=== PATIENT | male | born 1965 | race American Indian/Alaskan Native ===

== ENCOUNTER 2016-08-18 14:01 | Emergency (ER) | payer BC, OTHER ==
[2016-08-18 14:14] VITALS: BMI 29.6
--- NOTE | 2016-08-18 14:53 | ED PDOC ---
Arrival/HPI - General Chief Complaint: Back Pain Time Seen by Provider: 08/18/16 14:37 - History of Present Illness Narrative History of Present Illness (Text): 08/18/16 14:53 Patient presents with lower lumbar back pain after bending/forward flexion 4 days ago. Pt states pain feels like a muscle spasm, worst with movement and palpation. States pain shoots across his lower back. No ripping/tearing sensation, pt is not diffuse and not traveling or changing location. Relieved with positioning. No lower extremity pain/weakness/paresthesias. Pt denies urinary incontinence or retention. No bowel incontinence, constipation, or diarrhea. No hx of IVDA, no f/c, no neck pain. No other complaints. Past Medical History - Provider Review Nursing Documentation Reviewed: Yes - Past History Past History: No Previous - Infectious Disease Hx of Infectious Diseases: None - Tetanus Immunization Tetanus Immunization: Unknown - Past Medical History Past Medical History: No Previous - Cardiac Hx Hypertension: Yes Hx Pacemaker: Yes - Pulmonary Hx Respiratory Disorders: No - Neurological Hx Neurological Disorder: Yes - HEENT Hx HEENT Disorder: Yes - Renal Hx Renal Disorder: No - Endocrine/Metabolic Hx Endocrine Disorders: No - Hematological/Oncological Hx Blood Transfusions: No - Integumentary Hx Dermatological Disorder: No Hx Basal Cell Carcinoma: No Hx Eczema: No Hx Melanoma: No Hx Psoriasis: No Hx Squamous Cell Carcinoma: No - Musculoskeletal/Rheumatological Hx Musculoskeletal Disorders: No - Gastrointestinal Hx Gastroesophageal Reflux: No - Genitourinary/Gynecological Hx Genitourinary Disorders: No - Psychiatric Hx Physical Abuse: No Hx Substance Use: No - Past Surgical History Past Surgical History: No Previous - Surgical History Hx Amputation: No Hx Appendectomy: No Hx Cardiac Catheterization: Yes Hx Cholecystectomy: No Hx Coronary Stent: No Hx Gastric Bypass Surgery: No Hx Hysterectomy: No Hx Joint Replacement: No Hx Kidney Transplant: No Hx Liver Transplant: No Hx Mastectomy: No Hx Musculoskeletal Surgery: No Hx Open Heart Surgery: No Hx Orthopedic Surgery: No Hx Splenectomy: No Hx Valve Replacement: No - Anesthesia Hx Anesthesia Reactions: No Hx Malignant Hyperthermia: No - Suicidal Assessment Feels Threatened In Home Enviroment: No Family/Social History - Physician Review Nursing Documentation Reviewed: Yes Family/Social History: Unknown Family HX Smoking Status: Never Smoked Hx Alcohol Use: No Hx Substance Use: No Hx Substance Use Treatment: No Allergies/Home Meds Allergies/Adverse Reactions: Allergies No Known Allergies Allergy (Verified 07/12/15 19:29) Home Medications: Home Meds Medication Instructions Recorded Confirmed Aspirin [Adult Low Dose Aspirin EC] 81 mg PO DAILY 08/18/16 08/18/16 Omeprazole [Omeprazole] 20 mg PO DAILY 08/18/16 08/18/16 Ramipril [Altace] 2.5 mg PO DAILY 08/18/16 08/18/16 Sotalol [Betapace] 80 mg PO DAILY 08/18/16 08/18/16 Physical Exam - Physical Exam Narrative Physical Exam (Text): 08/18/16 14:57 - Review of Systems Constitutional: Normal. absent: Fatigue, Weight Change, Fevers Eyes: Normal ENT: denies sore throat, denies tristhmus Respiratory: Normal. absent: SOB, Cough, Sputum Cardiovascular: absent: Chest Pain, Palpitations, Syncope Gastrointestinal: Normal. absent: Abdominal Pain, Diarrhea, Nausea, Vomiting Genitourinary: Normal. absent: Dysuria, Frequency, Hematuria Musculoskeletal: back pain. absent: Arthralgias, Neck Pain Skin: no rashes, no erythema Neurological: absent: Focal Weakness Endocrine: Normal Hemo/Lymphatic: Normal Psychiatric: No suicidal or homicidal ideations Physical exam Patient appears age appropriate in no distress, speaking full sentences without difficulty Increased hypertonicity appreciated in the lumbar region, pain quality reproduced with palpation. No midline tenderness. FROM of pt's cervical, thoracic, lumbar, and sacral regions appreciated, active/passive without any difficulty. Lower extremities with full neurological and vascular intact. Steady gait. - Systems Exam Head: Present: Atraumatic, Normocephalic Pupils: Present: PERRL Extroacular Muscles: Present: EOMI Conjunctiva: Present: Normal Mouth: Present: Moist Mucous Membranes Neck: Present: Normal Range of Motion. No: MIDLINE TENDERNESS, Paraspinal Tenderness Respiratory/Chest: Present: Clear to Auscultation, Good Air Exchange. No: Respiratory Distress, Accessory Muscle Use, Tachypneic Cardiovascular: Present: Regular Rate and Rhythm, Normal S1, S2, Peripheal Pulses Present. No: Murmurs Abdomen: Present: Normal Bowel Sounds. No: Tenderness, Distention, Peritoneal Signs, Rebound, Guarding Back: No: Midline Tenderness Upper Extremity: Present: Normal Inspection. No: Cyanosis, Edema Lower Extremity: Present: Normal Inspection. No: Edema Neurological: Present: GCS=15, Speech Normal, cranial nerves II through XII fully intact with no cerebellar abnormality, neurosensory fully intact. No focal neurological deficits. Skin: Present: Warm, Dry, Normal Color. No: Rashes Lymphatic: Present: OX3, NI, NC Psychiatric: Present: Alert, Oriented x 3, Normal Insight, Normal Concentration Vital Signs Reviewed: Yes Vital Signs Temp Pulse Resp BP Pulse Ox 08/18/16 14:10 98.0 F 65 16 109/53 L 98 Temperature: Afebrile Blood Pressure: Normal Pulse: Regular Respiratory Rate: Normal Appearance: Positive for: Well-Appearing Pain Distress: None Mental Status: Positive for: Alert and Oriented X 3 Medical Decision Making ED Course and Treatment: pt received Toradol and Valium reported symptomatic relief. Pt states is not driving home. Based on hx and physical, no suspicion for renal involvement, cord impingement or epidural/spinal abscess stable for dc home. instructed not to drive/operate machinery/drink/do drugs with medication Pt verbalized understands to return to the ER right away for new or worsening symptoms or for inability to f/u with PMD or specialist as instructed. Patient verbalized full agreement with and understanding of discharge instructions. States that he agrees with the plan and disposition. Verbalized and repeated discharge instructions and plan. I have given the patient opportunity to ask any additional questions. - Medication Orders Current Medication Orders: Discontinued Medications Diazepam (Valium) 5 mg PO ONCE ONE Stop: 08/18/16 14:39 Ketorolac Tromethamine (Toradol) 30 mg IM STAT STA Stop: 08/18/16 14:39 Disposition/Present on Arrival - Present on Arrival Any Indicators Present on Arrival: No History of DVT/PE: No History of Uncontrolled Diabetes: No Urinary Catheter: No History of Decub. Ulcer: No History Surgical Site Infection Following: None - Disposition Have Diagnosis and Disposition been Completed?: Yes Diagnosis: Back pain Disposition: HOME/ ROUTINE Disposition Time: 14:50 Patient Plan: Discharge Condition: GOOD Discharge Instructions (ExitCare): Acute Low Back Pain (ED) Additional Instructions: PLEASE RETURN TO THE EMERGENCY DEPARTMENT FOR NEW OR WORSENING SYMPTOMS. RETURN RIGHT AWAY IF YOU CANNOT FOLLOW UP WITH YOUR PRIMARY CARE DOCTOR, CLINIC, OR SPECIALIST IN 1-2 DAYS. Prescriptions: diaZEpam [Valium] 5 mg PO DAILY PRN #5 tab PRN Reason: Pain, Moderate (4-7) Ketorolac Tromethamine [Toradol] 10 mg PO Q6 PRN #10 tab PRN Reason: Pain, Severe (8-10) Referrals: PCP,NO [Primary Care Provider] - Follow up with primary Erick Torres MD [Staff Provider] - Follow up with primary
[2016-08-18 15:04] VITALS: BP 114/49; PULSE 75; RESP 19; TEMP 98; O2SAT 99
== END 2016-08-18 15:06 | disposition home or self-care (01) ==
LOC: ED 14:01
DX: M54.9 Dorsalgia, unspecified (principal)
CPT/HCPCS: 96372; 99283; J1885

== ENCOUNTER 2017-02-09 07:07 | Emergency (ER) | payer BC, OTHER ==
[2017-02-09 07:08] VITALS: BMI 29.6
[2017-02-09 07:33] VITALS: O2SAT 98
--- NOTE | 2017-02-09 08:31 | ED PDOC ---
Arrival/HPI - General Chief Complaint: Cough, Cold, Congestion Time Seen by Provider: 02/09/17 08:26 Historian: Patient - History of Present Illness Narrative History of Present Illness (Text): 02/09/17 08:31 A 51 year old male, whose past medical history includes pacemaker, presents to the emergency department complaining of flu like symptoms for 2 days. Patient reports generalized fatigue, myalgias, subjective fevers and a productive cough. He states he was seen by his PMD 3 days ago and prescribed antibiotics, without any relief of his symptoms. Patient denies any nausea, vomiting, diarrhea, abdominal pain, urinary symptoms, chest pain, shortness of breath or any other complaints. Time/Duration: Other (3 days) Symptom Course: Unchanged Quality: Other Context: Home Past Medical History - Provider Review Nursing Documentation Reviewed: Yes - Past History Past History: No Previous - Infectious Disease Hx of Infectious Diseases: None - Tetanus Immunization Tetanus Immunization: Unknown - Past Medical History Past Medical History: No Previous - Cardiac Hx Hypertension: Yes Hx Pacemaker: Yes - Pulmonary Hx Respiratory Disorders: No - Neurological Hx Neurological Disorder: Yes - HEENT Hx HEENT Disorder: Yes - Renal Hx Renal Disorder: No - Endocrine/Metabolic Hx Endocrine Disorders: No - Hematological/Oncological Hx Blood Transfusions: No - Integumentary Hx Dermatological Disorder: No - Musculoskeletal/Rheumatological Hx Musculoskeletal Disorders: No - Gastrointestinal Hx Gastroesophageal Reflux: No - Genitourinary/Gynecological Hx Genitourinary Disorders: No - Psychiatric Hx Substance Use: No - Past Surgical History Past Surgical History: No Previous - Surgical History Hx Cardiac Catheterization: Yes - Anesthesia Hx Anesthesia Reactions: No Hx Malignant Hyperthermia: No - Suicidal Assessment Feels Threatened In Home Enviroment: No Family/Social History - Physician Review Nursing Documentation Reviewed: Yes Family/Social History: No Known Family HX Smoking Status: Never Smoked Hx Alcohol Use: No Hx Substance Use: No Hx Substance Use Treatment: No Allergies/Home Meds Allergies/Adverse Reactions: Allergies No Known Allergies Allergy (Verified 02/09/17 07:33) Review of Systems - Physician Review All systems were reviewed & negative as marked: Yes - Review of Systems Constitutional: Fatigue, Fevers Respiratory: Cough, Sputum. absent: SOB Cardiovascular: absent: Chest Pain Gastrointestinal: absent: Abdominal Pain, Diarrhea, Nausea, Vomiting Genitourinary Male: absent: Dysuria, Frequency, Hematuria Musculoskeletal: Myalgias Physical Exam Vital Signs Reviewed: Yes Vital Signs Temp Pulse Resp BP Pulse Ox 02/09/17 09:07 99 F 68 17 122/70 98 02/09/17 07:30 99.2 F 73 18 132/79 98 Temperature: Afebrile Blood Pressure: Normal Pulse: Regular Respiratory Rate: Normal Appearance: Positive for: Well-Appearing, Non-Toxic, Comfortable Pain Distress: None Mental Status: Positive for: Alert and Oriented X 3 - Systems Exam Head: Present: Atraumatic, Normocephalic Pupils: Present: PERRL Extroacular Muscles: Present: EOMI Conjunctiva: Present: Normal Mouth: Present: Moist Mucous Membranes Pharnyx: Present: Normal Neck: Present: Normal Range of Motion Respiratory/Chest: Present: Clear to Auscultation, Good Air Exchange. No: Respiratory Distress, Accessory Muscle Use Cardiovascular: Present: Regular Rate and Rhythm, Normal S1, S2. No: Murmurs Abdomen: Present: Normal Bowel Sounds. No: Tenderness, Distention, Peritoneal Signs Back: Present: Normal Inspection Upper Extremity: Present: Normal Inspection, NORMAL PULSES. No: Cyanosis, Edema Lower Extremity: Present: Normal Inspection, NORMAL PULSES. No: Edema Neurological: Present: GCS=15, Speech Normal Skin: Present: Warm, Dry, Normal Color. No: Rashes Psychiatric: Present: Alert, Oriented x 3, Normal Insight, Normal Concentration Medical Decision Making ED Course and Treatment: 02/09/17 09:00 Chest xray read and interpreted by me, which shows no acute findings. I have discussed the results and plan with the patient, who expresses understanding. Patient in agreement with plan to be discharged home. Patient was instructed to follow up with physician or return if symptoms worsen or new concerning symptoms arise. - RAD Interpretation Radiology Orders: 02/09/17 08:26 CHEST TWO VIEWS (PA/LAT) [RAD] Stat - Scribe Statement The provider has reviewed the documentation as recorded by the Geronimo Guevara Provider Scribe Attestation: All medical record entries made by the Scribe were at my direction and personally dictated by me. I have reviewed the chart and agree that the record accurately reflects my personal performance of the history, physical exam, medical decision making, and the department course for this patient. I have also personally directed, reviewed, and agree with the discharge instructions and disposition. Disposition/Present on Arrival - Present on Arrival Any Indicators Present on Arrival: No History of DVT/PE: No History of Uncontrolled Diabetes: No Urinary Catheter: No History of Decub. Ulcer: No History Surgical Site Infection Following: None - Disposition Have Diagnosis and Disposition been Completed?: Yes Diagnosis: Influenza-like illness Disposition: HOME/ ROUTINE Disposition Time: 09:00 Condition: STABLE Discharge Instructions (ExitCare): Influenza (ED) Additional Instructions: Please follow up with your doctor. You can take both tylenol and ibuprofen for fever/body aches. Return to the ER for any difficulty breathing, worsening symptoms, or for any other concerns. Prescriptions: Promethazine [Phenergan Syrup] 12.5 mg PO Q12H PRN #100 ml PRN Reason: Cough [facility] - Follow up with primary Forms: [employer] (Slovenian)
[2017-02-09 09:08] VITALS: BP 122/70; PULSE 68; RESP 17; TEMP 99
--- NOTE | 2017-02-09 13:33 | RAD ---
HISTORY: cough COMPARISON: Comparison chest dated 07/12/2015. TECHNIQUE: Chest PA and lateral FINDINGS: LUNGS: No active pulmonary disease. PLEURA: No significant pleural effusion identified. No pneumothorax apparent. CARDIOVASCULAR: Heart is upper limits of normal -borderline enlarged. Interval placement bipolar pacemaker/ defibrillator. OSSEOUS STRUCTURES: Mild multilevel degenerative spondylosis of the thoracic spine. VISUALIZED UPPER ABDOMEN: Normal. OTHER FINDINGS: None. IMPRESSION: No active disease.
== END 2017-02-09 09:08 | disposition home or self-care (01) ==
LOC: ED 07:07
DX: J11.1 Influenza due to unidentified influenza virus with other respiratory manifestations (principal)

== ENCOUNTER 2017-06-09 21:04 | Emergency (ER) | payer BC ==
[2017-06-09 21:05] VITALS: BMI 29.6
[2017-06-09 22:19] VITALS: RESP 17; O2SAT 98
--- NOTE | 2017-06-09 22:56 | ED PDOC ---
Arrival/HPI - General Chief Complaint: Male Genitourinary Time Seen by Provider: 06/09/17 22:24 Historian: Patient - History of Present Illness Narrative History of Present Illness (Text): 06/09/17 22:56 Patrick Bashir is a 51 year old male, whose past medical history includes pacemaker and hypertension, who presents to the Emergency department complaining of left flank pain today. Patient reports associated difficulty urinating. Patient states he has been drinking plenty of fluids. Patient denies any fever, chills, chest pain, shortness of breath, nausea, vomiting, diarrhea, dysuria, hematuria, neck pain, headache, dizziness, trauma/injury, or any other complaints. Symptom Onset: Gradual Symptom Course: Unchanged Activities at Onset: Light Context: Home Past Medical History - Provider Review Nursing Documentation Reviewed: Yes - Past History Past History: No Previous - Infectious Disease Hx of Infectious Diseases: None - Tetanus Immunization Tetanus Immunization: Unknown - Past Medical History Past Medical History: No Previous - Cardiac Hx Hypertension: Yes Hx Pacemaker: Yes (Left Chest Wall) - Pulmonary Hx Respiratory Disorders: No - Neurological Hx Neurological Disorder: Yes - HEENT Hx HEENT Disorder: Yes - Renal Hx Renal Disorder: No - Endocrine/Metabolic Hx Endocrine Disorders: No - Hematological/Oncological Hx Blood Transfusions: No - Integumentary Hx Dermatological Disorder: No - Musculoskeletal/Rheumatological Hx Musculoskeletal Disorders: No - Gastrointestinal Hx Gastroesophageal Reflux: No - Genitourinary/Gynecological Hx Genitourinary Disorders: No - Psychiatric Hx Physical Abuse: No Hx Substance Use: No - Past Surgical History Past Surgical History: No Previous - Surgical History Hx Cardiac Catheterization: Yes - Anesthesia Hx Anesthesia Reactions: No Hx Malignant Hyperthermia: No - Suicidal Assessment Feels Threatened In Home Enviroment: No Family/Social History - Physician Review Nursing Documentation Reviewed: Yes Family/Social History: Unknown Family HX Smoking Status: Never Smoked Hx Alcohol Use: No Hx Substance Use: No Hx Substance Use Treatment: No Allergies/Home Meds Allergies/Adverse Reactions: Allergies No Known Allergies Allergy (Verified 02/09/17 07:33) Review of Systems - Physician Review All systems were reviewed & negative as marked: Yes - Review of Systems Constitutional: Normal. absent: Fevers Eyes: Normal ENT: Normal Respiratory: Normal. absent: SOB, Cough Cardiovascular: Normal. absent: Chest Pain Gastrointestinal: Normal. absent: Abdominal Pain, Diarrhea, Nausea, Vomiting Genitourinary Male: Urinary Output Changes (+difficulty urinating) Musculoskeletal: Back Pain (+left flank pain). absent: Neck Pain Skin: Normal. absent: Rash Neurological: Normal. absent: Headache, Dizziness Endocrine: Normal Hemo/Lymphatic: Normal Psychiatric: Normal Physical Exam Vital Signs Reviewed: Yes Vital Signs Temp Pulse Resp BP Pulse Ox 06/10/17 02:15 98.2 F 06/10/17 01:46 65 17 124/63 98 06/09/17 22:16 97.9 F 60 17 109/74 98 Temperature: Afebrile Blood Pressure: Normal Pulse: Regular Respiratory Rate: Normal Appearance: Positive for: Well-Appearing, Non-Toxic, Comfortable Pain Distress: None Mental Status: Positive for: Alert and Oriented X 3 - Systems Exam Head: Present: Atraumatic, Normocephalic Pupils: Present: PERRL Extroacular Muscles: Present: EOMI Conjunctiva: Present: Normal Mouth: Present: Moist Mucous Membranes Neck: Present: Normal Range of Motion. No: Meningeal Signs, MIDLINE TENDERNESS , Paraspinal Tenderness Respiratory/Chest: Present: Clear to Auscultation, Good Air Exchange. No: Respiratory Distress, Accessory Muscle Use Cardiovascular: Present: Regular Rate and Rhythm, Normal S1, S2. No: Murmurs Abdomen: No: Tenderness, Distention, Peritoneal Signs Back: Present: Normal Inspection. No: CVA Tenderness, Midline Tenderness, Paraspinal Tenderness Upper Extremity: Present: Normal Inspection. No: Cyanosis, Edema Lower Extremity: Present: Normal Inspection. No: Edema Neurological: Present: GCS=15, CN II-XII Intact, Speech Normal Skin: Present: Warm, Dry, Normal Color. No: Rashes Psychiatric: Present: Alert, Oriented x 3, Normal Insight, Normal Concentration Medical Decision Making ED Course and Treatment: 06/09/17 22:56 Impression: 51 year old male complaining of left flank pain today. Plan: -- CT Abdomen and Pelvis -- Labs -- Urinalysis -- IV fluids -- Zofran -- Toradol -- Reassess and disposition Progress Notes: 06/10/17 01:35 CT Abdomen and Pelvis shows: Limitations: Lack of intravenous contrast. Lung bases: Minimal atelectasis/scarring. Borderline cardiomegaly. ABDOMEN: Liver: Unremarkable. Gallbladder and bile ducts: No calcified stones. No ductal dilation. Pancreas: Unremarkable. No ductal dilation. Spleen: No splenomegaly. Adrenals: No mass. Kidneys and ureters: Too small to characterize lesion within RIGHT kidney. No renal calculi. No hydronephrosis. Stomach and bowel: No definite mural thickening. No obstruction. PELVIS: Appendix: Normal caliber. No inflammation. Bladder: Unremarkable. No stones. Reproductive: Unremarkable as visualized. ABDOMEN and PELVIS: Intraperitoneal space: No significant fluid collection. No free air. Bones/joints: Mild degenerative changes of spine. No acute fracture. Soft tissues: Small umbilical hernia containing fat. Vasculature: Unremarkable. No aneurysm. Lymph nodes: No pathologically enlarged lymph nodes. Tubes, lines and devices: Pacemaker leads. IMPRESSION: 1. No definite CT evidence of urolithiasis. 2. Incidental/non-acute findings are described above. 06/10/17 02:045 On re-evaluation, patient feels better and is in no acute distress. I have discussed the results and plan with the patient, who expresses understanding. Patient in agreement with plan to be discharged home. Patient is stable for discharge. Patient was instructed to follow up with physician or return if symptoms worsen or new concerning symptoms arise. - Lab Interpretations Lab Results: 06/09/17 23:30 06/09/17 23:30 Lab Results 06/09/17 23:30: Sodium 140, Potassium 4.0, Chloride 105, Carbon Dioxide 25, Anion Gap 14, BUN 22 H, Creatinine 1.3, Est GFR ( Amer) > 60, Est GFR ( Non-Af Amer) 58, Random Glucose 101, Calcium 8.6, Total Bilirubin 0.3, AST 35, ALT 43, Alkaline Phosphatase 73, Total Protein 7.1, Albumin 4.1, Globulin 3.0, Albumin/Globulin Ratio 1.4 06/09/17 23:30: Urine Color Yellow, Urine Appearance Clear, Urine pH 6.5, Ur Specific [place]eda 1.010, Urine Protein Negative, Urine Glucose (UA) Negative, Urine Ketones Negative, Urine Blood Negative, Urine Nitrate Negative, Urine Bilirubin Negative, Urine Urobilinogen 0.2, Ur Leukocyte Esterase Negative 06/09/17 23:30: WBC 5.5, RBC 4.44, Hgb 13.0 L, Hct 37.4 L, MCV 84.2, MCH 29.3, MCHC 34.8, RDW 12.4, Plt Count 226, MPV 9.1, Gran % 35.6 L, Lymph % (Auto) 54.6 H, Harding % (Auto) 6.9 H, Eos % (Auto) 2.5, Baso % (Auto) 0.4, Gran # 1.97, Lymph # (Auto) 3.0, Harding # (Auto) 0.4, Eos # (Auto) 0.1, Baso # (Auto) 0.02 I have reviewed the lab results: Yes - RAD Interpretation Radiology Orders: 06/09/17 23:20 ABD & PELVIS W/O PO OR IV CONT [CT] Stat Ice Cutter: Radiologist - Medication Orders Current Medication Orders: Discontinued Medications Sodium Chloride (Sodium Chloride 0.9%) 1,000 mls @ 100 mls/hr IV .Q10H STA Stop: 06/10/17 09:19 Last Admin: 06/10/17 00:10 Dose: 100 mls/hr eMAR Start Stop Document 06/10/17 00:10 IT (Rec: 06/10/17 00:10 IT [id number]) Intravenous Solution Start Date 06/10/17 Start Time 00:10 End Date 06/10/17 Ketorolac Tromethamine (Toradol) 30 mg IVP STAT STA Stop: 06/09/17 23:21 Last Admin: 06/10/17 00:10 Dose: 30 mg MAR Pain Assessment Document 06/10/17 00:10 IT (Rec: 06/10/17 00:10 IT [id number]) Pain Reassessment Is this a pain reassessment? No Sleep Is patient sleeping during reassessment? No Presence of Pain Presence of Pain Yes IVP Administration Document 06/10/17 00:10 IT (Rec: 06/10/17 00:10 IT [id number]) Charges for Administration # of IVP Administrations 1 Ondansetron HCl (Zofran Inj) 4 mg IVP STAT STA Stop: 06/09/17 23:21 Last Admin: 06/10/17 00:10 Dose: 4 mg IVP Administration Document 06/10/17 00:10 IT (Rec: 06/10/17 00:10 IT [id number]) Charges for Administration # of IVP Administrations 1 - Scribe Statement The provider has reviewed the documentation as recorded by the Scribe Stephanie Jolleyzon All medical record entries made by the Scribe were at my direction and personally dictated by me. I have reviewed the chart and agree that the record accurately reflects my personal performance of the history, physical exam, medical decision making, and the department course for this patient. I have also personally directed, reviewed, and agree with the discharge instructions and disposition. Disposition/Present on Arrival - Present on Arrival Any Indicators Present on Arrival: No History of DVT/PE: No History of Uncontrolled Diabetes: No Urinary Catheter: No History of Decub. Ulcer: No History Surgical Site Infection Following: None - Disposition Have Diagnosis and Disposition been Completed?: Yes Diagnosis: Back pain Disposition: HOME/ ROUTINE Disposition Time: 02:05 Condition: GOOD Discharge Instructions (ExitCare): Low Back Pain in Adults Referrals: Mj England MD [Primary Care Provider] - Follow up with primary Forms: [employer] (Sami)
[2017-06-09] MEDS ORDERED: Sodium Chloride 0.9% 1,000 ML IV STA (23:20)
[2017-06-09 23:59] LABS: BASO # 0.02 K/mm3 (0.0-2.0); BASO % 0.4 % (0.0-3.0); EOS # 0.1 (0.0-0.7); EOS % 2.5 % (1.5-5.0); GRAN # 1.97 (1.4-6.5); GRAN % 35.6 % (50.0-68.0); LYMPH % 54.6 % (22.0-35.0); MEAN CELL VOLUME 84.2 fl (80.0-105.0); MEAN CORPUSCULAR HEMOGLOBIN 29.3 pg (25.0-35.0); MEAN CORPUSCULAR HGB CONC 34.8 g/dl (31.0-37.0); MEAN PLATELET VOLUME 9.1 fl (7.0-11.0); MONO # 0.4 (0.1-0.6); MONO % 6.9 % (1.0-6.0); RBC 4.44 10^6/uL (3.5-6.1); RED CELL DISTRIBUTION WIDTH 12.4 % (11.5-14.5); WHITE BLOOD COUNT 5.5 10^3/ul (4.5-11.0)
[2017-06-10 00:03] LABS: ALB/GLOB RATIO 1.4 (1.1-1.8); ALBUMIN 4.1 g/dL (3.0-4.8); ALT/SGPT 43 U/L (7-56); AST/SGOT 35 U/L (17-59); BLOOD UREA NITROGEN 22 mg/dL (7-21); CALCIUM 8.6 mg/dL (8.4-10.5); GFR AFRICAN-AMERICAN > 60; GFR NON-AFRICAN AMERICAN 58
[2017-06-10 00:06] LABS: PH,URINE 6.5 (4.7-8.0); URINE BILIRUBIN NEGATIVE (NEGATIVE); URINE BLOOD NEGATIVE (NEGATIVE); URINE GLUCOSE (UA) NEGATIVE (NEGATIVE); URINE LEUKOCYTE ESTERASE NEGATIVE Leu/uL (NEGATIVE); URINE PROTEIN NEGATIVE mg/dL (<30 mg/dL); URINE UROBILINOGEN 0.2 E.U./dL (<1 E.U./dL)
[2017-06-10 00:16] LABS: URINE APPEARANCE CLEAR (CLEAR); URINE COLOR YELLOW (YELLOW)
--- NOTE | 2017-06-10 01:34 | CT ---
EXAM: CT Abdomen and Pelvis Without Intravenous Contrast CLINICAL HISTORY: 51 years old, male; Pain; Abdominal pain; Flank; Left; Additional info: Left flank pain TECHNIQUE: Axial computed tomography images of the abdomen and pelvis without intravenous contrast. All CT scans at this facility use one or more dose reduction techniques, viz.: automated exposure control; ma/kV adjustment per patient size (including targeted exams where dose is matched to indication; i.e. head); or iterative reconstruction technique. Coronal and sagittal reformatted images were created and reviewed. COMPARISON: CT - ABD PELVIS IV CONTRAST ONLY 2015-03-15 13:30 FINDINGS: Limitations: Lack of intravenous contrast. Lung bases: Minimal atelectasis/scarring. Borderline cardiomegaly. ABDOMEN: Liver: Unremarkable. Gallbladder and bile ducts: No calcified stones. No ductal dilation. Pancreas: Unremarkable. No ductal dilation. Spleen: No splenomegaly. Adrenals: No mass. Kidneys and ureters: Too small to characterize lesion within RIGHT kidney. No renal calculi. No hydronephrosis. Stomach and bowel: No definite mural thickening. No obstruction. PELVIS: Appendix: Normal caliber. No inflammation. Bladder: Unremarkable. No stones. Reproductive: Unremarkable as visualized. ABDOMEN and PELVIS: Intraperitoneal space: No significant fluid collection. No free air. Bones/joints: Mild degenerative changes of spine. No acute fracture. Soft tissues: Small umbilical hernia containing fat. Vasculature: Unremarkable. No aneurysm. Lymph nodes: No pathologically enlarged lymph nodes. Tubes, lines and devices: Pacemaker leads. IMPRESSION: 1. No definite CT evidence of urolithiasis. 2. Incidental/non-acute findings are described above.
[2017-06-10 01:47] VITALS: BP 124/63; PULSE 65
[2017-06-10 02:17] VITALS: TEMP 98.2
== END 2017-06-10 02:17 | disposition home or self-care (01) ==
LOC: ED 21:04
DX: M54.9 Dorsalgia, unspecified (principal); I10 Essential (primary) hypertension
CPT/HCPCS: 74176; 80053; 81003; 85025; 96374; 96375; 99284; J1885; J2405; J7040